=== PATIENT | female | born 1955 | race Caucasian/White ===

== ENCOUNTER → 2017-03-27 | Outpatient (CLI) | payer SELFPAY ==
--- NOTE | 2017-03-28 08:59 | RAD ---
EXAM DESCRIPTION: Hip,Left 2 Views (accession [id number]), Pelvis (accession [id number]) CLINICAL HISTORY: HIP PN COMPARISON: December 08, 2014 TECHNIQUE: AP/frog leg lateral AP view of the pelvis FINDINGS: Left total hip replacement and stable moderately advanced degenerative changes of the right hip are noted. The bony pelvic ring is intact without soft tissue masses or fracture. Left total hip replacement is noted. Satisfactory alignment is present. Compared to previous 2014 study, there is now a zone of lucency surrounding the stem of the femoral component that is not evident on previous February 2014 study. Loosening of the femoral component is suspected without marked erosion. IMPRESSION: 1. Essentially normal pelvis left total hip replacement and moderately advanced but unchanged degenerative changes right hip. 2. Satisfactory alignment of left total hip prosthesis with now a zone of lucency surrounding the tip of the femoral stem, not evident remotely 2014 study and is suspicious for loosening of the femoral component. Electronically signed by: Gm Veliz MD 03/28/2017 8:57 AM CDT
--- NOTE | 2017-03-28 08:59 | RAD ---
EXAM DESCRIPTION: Hip,Left 2 Views (accession [id number]), Pelvis (accession [id number]) CLINICAL HISTORY: HIP PN COMPARISON: December 08, 2014 TECHNIQUE: AP/frog leg lateral AP view of the pelvis FINDINGS: Left total hip replacement and stable moderately advanced degenerative changes of the right hip are noted. The bony pelvic ring is intact without soft tissue masses or fracture. Left total hip replacement is noted. Satisfactory alignment is present. Compared to previous 2014 study, there is now a zone of lucency surrounding the stem of the femoral component that is not evident on previous February 2014 study. Loosening of the femoral component is suspected without marked erosion. IMPRESSION: 1. Essentially normal pelvis left total hip replacement and moderately advanced but unchanged degenerative changes right hip. 2. Satisfactory alignment of left total hip prosthesis with now a zone of lucency surrounding the tip of the femoral stem, not evident remotely 2014 study and is suspicious for loosening of the femoral component. Electronically signed by: Gm Veliz MD 03/28/2017 8:57 AM CDT
== END | disposition home or self-care (01) ==
LOC: RAD 09:36
PROVIDERS: ATTEND Orthopaedic Surgery
DX: M25.552 Pain in left hip (principal)

== ENCOUNTER → 2017-09-25 | Outpatient (CLI) | payer BC ==
--- NOTE | 2017-09-25 10:33 | MRI ---
EXAM DESCRIPTION: Cervical Spine CLINICAL HISTORY: PAIN COMPARISON: None Available. TECHNIQUE: MRI of the cervical spine is performed according to our usual protocol. FINDINGS: Sagittal T2 images reveal previous fusion of C5-C6 and C7. There is decreased signal intensity within the other intervertebral discs. Normal T2 signal intensity within the cervical cord. Posterior discal abnormalities are most prominent at the upper thoracic levels. Sagittal T1 images show benign marrow signal characteristics. Normal T1 appearance of the cervical and upper thoracic spinal cord. Normal alignment of the vertebral bodies and facets. Sagittal STIR images are negative for high signal intensity marrow edema within the vertebral bodies or posterior elements of the cervical spine. However there is mild increased signal intensity around degenerated discs in the upper T-spine. No paraspinous fluid collection or cystic lesion. Axial images were obtained to evaluate the cervical disc levels. C2-3: Normal posterior disc margin with no spinal stenosis or neural foraminal narrowing. Facets appear normal. Normal appearance of the cord at this level. C3-4: Mild diffuse posterior disc/osteophyte complex is seen without significant spinal stenosis. Severe right and moderately severe neural foraminal narrowing is present. Facets are degenerated with prominent spurring on the left. Uncovertebral joint spurring contributes to significantly to neural foraminal narrowing especially on the right. Normal appearance of the cord at this level. C4-5: Diffuse posterior posterior disc/osteophyte complex is seen with right lateral accentuation severely narrowing the entry zone to the right neural foramen. No significant spinal stenosis. Moderately severe facet hypertrophic spurring is present bilaterally with prominent uncovertebral joint spurring. Neural foraminal narrowing is severe bilaterally. Normal appearance of the cord at this level. C5-6: At the fused C5-6 level, midline and right paracentral bony protuberance impinges upon the cervical spinal cord and measures 4 mm in AP dimension. There is contouring of the anterior aspect of the cord which appears flattened. CSF space is still preserved posterior to the cord. Moderate facet degenerative changes are present. Moderate right neural foraminal narrowing is seen with mild left neural foraminal narrowing. Uncovertebral joint spurring is more prominent on the right. C6-7: Midline rightward bony protuberance impinges upon the anterior aspect of the cervical cord and measures 3.3 mm in AP dimension. There is anterior cord contouring. CSF space posterior to the cord is preserved. The left neural foramen appears widely patent. Uncovertebral joint spurring narrows the right neural foramen moderately. C7-T1: Mild posterior leftward disc/osteophyte complex is seen without spinal stenosis or cord contouring. There is leftward accentuation with left-sided uncovertebral joint spurring severely narrowing the left neural foramen. Right neural foramen appears widely patent. Normal appearance of the cord at this level. Axial images through T1-2 show mild diffuse posterior annular bulge with bilateral lateral accentuation and moderate neural foraminal narrowing bilaterally. Sagittal images show moderate annular bulges at T2-3, T3-4 and T4-5 levels without high-grade spinal stenosis. Severe right T2-3 neural foraminal narrowing is seen with moderate left T2-3 and T3-4 neural foraminal narrowing. Normal T2 and STIR signal intensity of the upper thoracic spinal cord. IMPRESSION: Multilevel spondylosis with facet and uncovertebral joint spurring narrowing the neural foramina as described above. Posterior bony protuberances at the fused C5-6 and C6-7 levels with anterior cord contouring and neural foraminal narrowing as described Posterior annular bulges of moderate degree in the upper thoracic spine. See above. Electronically signed by: Bob Ayers MD 09/25/2017 10:33 AM CDT
--- NOTE | 2017-09-25 11:07 | MRI ---
EXAM DESCRIPTION: Lumbar Spine w/o Contrast CLINICAL HISTORY: PAIN COMPARISON: None Available. TECHNIQUE: MRI of the lumbar spine is performed according to our usual protocol with axial and sagittal multi sequence imaging. FINDINGS: Sagittal T2 images reveal decreased signal intensity consistent with desiccation of the intervertebral discs at all lower thoracic and lumbar levels. Posterior annular bulges are most prominent at L1-2 through L3-4 levels. No prevertebral mass or aneurysm. Lower cord and conus appear normal. Tip of the conus is behind T12-L1. Spinal stenosis appears severe at the L3-4 level. There is 5 mm degenerative retrolisthesis of L1 on L2 and L2 on L3 with 5 mm anterolisthesis of L4 on L5. Coronal localization images show degenerative dextroscoliotic curvature of the lower thoracic and lumbar spine. Sagittal T1 images reveal benign marrow signal characteristics. Endplate changes are prominent around L5-S1 and L2-3. Wedging of L1 and T12 appears chronic with approximately 10-20% loss of height anteriorly. Few Schmorl's nodes are present. Normal T1 signal intensity and appearance of the lower cord and conus. Sagittal STIR images show reactive edematous increased signal intensity around degenerated L3-4 disc and L2-3 disc. Similar mildly increased signal intensity within the pedicles at these levels likely represents stress reaction. Small Tarlov cysts are seen behind S2 and S3. No paraspinous fluid collection or cystic lesion. Axial T1 and T2-weighted images were obtained to evaluate the disc levels. T12-L1: Mild diffuse posterior annular bulge without focal herniation. No significant spinal stenosis or right neural foraminal narrowing. Moderate left neural foraminal narrowing is present. Advanced hypertrophic spurring of the left facet joint is seen with milder degenerative changes on the right. Tip of the conus and upper cauda equina appear normal at this level. L1:2: Diffuse posterior annular bulge is seen with left lateral accentuation. No significant spinal stenosis. Severe left neural foraminal narrowing is present. Mild to moderate neural foraminal narrowing is present on the right. Facets appear hypertrophic with ligamentum flavum thickening. Severe left more than right subarticular recess narrowing is noted with compromise of the upper left lateral recess and displacement of descending L2 nerve roots medially. L2-3: Moderate to severe diffuse posterior annular bulge is seen with mild narrowing of the AP diameter the spinal canal to approximately 1.0 cm (axial image 17, series 501). Facet hypertrophy is seen with bilateral ligamentum flavum thickening. Severe narrowing of subarticular recesses is noted bilaterally with impingement upon the descending left L3 nerve root. Sagittal images show severe left neural foraminal narrowing with moderate narrowing on the right. L3-4: Severe diffuse posterior annular bulge is seen. Marked ligament flavum thickening and facet hypertrophy is noted. Spinal canal is narrowed to 7 mm in AP dimension and approximately 9 mm in mediolateral width. There is obliteration of subarticular recesses and bilateral lateral recess compromise. Sagittal images show moderate right and moderately severe left neural foraminal narrowing. L4-5: Grade 1 anterolisthesis of L4 on L5 is seen measuring 5 mm. Partial uncovering of the upper disc margin is noted with diffuse annular bulge narrowing the spinal canal to approximately 1.3 cm in AP dimension. Marked facet and ligamentum flavum hypertrophy is seen narrowing the mediolateral width of the spinal canal to 7 mm. Marked facet spurring is present. There is narrowing of subarticular recesses and upper lateral recesses of moderate degree bilaterally. Sagittal images show mild neural foraminal narrowing bilaterally. L5-S1: Moderate diffuse posterior annular bulge is seen without significant spinal stenosis. There is narrowing of subarticular recesses right more than left and upper left lateral recess compromise. Sagittal images show severe bilateral neural foraminal narrowing. Moderate facet and ligamentum flavum hypertrophy is present. Upper sacrum appears intact. Degenerative changes are noted at the SI joints with prominent spurring on the right. There is fatty atrophy of the paraspinous musculature and volumetric atrophy of the psoas muscles. No retroperitoneal mass, adenopathy or aortic aneurysm. Right renal cyst is partially visualized measuring approximately 4 cm in diameter. Prominent thickened appearance of left adrenal gland is incidentally noted. IMPRESSION: Multilevel chronic annular bulges and advanced facet degenerative changes with subarticular recess and neural foraminal compromise as described. Spinal stenosis at L3-4 with AP diameter of the spinal canal measuring 7 mm. Electronically signed by: Bob Ayers MD 09/25/2017 11:06 AM CDT
== END ==
LOC: MRI 07:57
PROVIDERS: ATTEND Family Medicine
DX: M51.26 Other intervertebral disc displacement, lumbar region (principal); M48.061 Spinal stenosis, lumbar region without neurogenic claudication; M54.12 Radiculopathy, cervical region

== ENCOUNTER 2018-05-26 13:09 | Emergency (ER) | payer BC ==
[~2018-05-26 13:09] MED LIST: LIDOCAINE 1% 10 ML VIAL INJ ONE; MIDAZOLAM INJ 2 MG/2 ML VIAL IV ONE; PROPOFOL 200 MG/20 ML VIAL IV ONE; fentaNYL CITRATE INJ 50 MCG/ML AMP IV ONE
--- NOTE | 2018-05-26 13:41 | RAD ---
EXAM DESCRIPTION: Hip,Left 2 Views CLINICAL HISTORY: 62 years Female, dislocation COMPARISON: March 27, 2017 FINDINGS: Two views of the left hip show superior dislocation of the patient's bipolar left hip prosthesis. No fracture is identified. The soft tissues are unremarkable. IMPRESSION: Superior dislocation of the patient's left hip prosthesis. Electronically signed by: Markus Peñaloza MD 05/26/2018 1:40 PM [facility]
--- NOTE | 2018-05-26 14:02 | ED.PDOC ---
History of Present Illness - General Chief Complaint: Lower Extremity Injury Stated Complaint: L hip dislocation Time Seen by Provider: 05/26/18 13:13 Source: patient Exam Limitations: no limitations - History of Present Illness Initial Comments: PT TRANSFERRED FROM OUTLYING FACILITY FOR L HIP DISLOCATION THAT WAS UNABLE TO BE REDUCED. PT STATES THAT HIP DISLOCATED WHILE ATTEMPTING TO PUT ON HER BOOT. PT REPORTS HER HIP HAS DISLOCATED [address] TIM[address] PA[address] LYNN AT BEDSIDE TO EVALUATE PT SHORTLY AFTER ARRIVAL. Occurred: this morning Pain - Lower Extremity: severe: Left Thigh/Hip Method of Injury: other - PUTTING ON HER BOOT Improving Factors: immobilization Worsening Factors: movement Allergies/Adverse Reactions: Allergies Clarithromycin [From Biaxin] Allergy (Intermediate, Verified 01/03/15 11:54) Rash Protective Adhesive Powder Allergy (Intermediate, Verified 01/03/15 11:28) Rash Home Medications: Ambulatory Orders ALPRAZolam [Xanax] 0.25 mg PO TID PRN 02/14/14 Carisoprodol [Soma] 350 mg PO BID PRN 02/14/14 Estazolam [Prosom] 2 mg PO PRN PRN 02/14/14 HYDROcodone 7.5MG/APAP 325MG [[place] 7.5/325] 7.5 - 15 mg PO Q4-6H PRN 02/14/14 Losartan Potassium [Cozaar] 50 mg PO BID 02/14/14 Nifedipine [Procardia Xl] 90 mg PO DAILY 02/14/14 Ondansetron [Zofran Odt] 8 mg PO Q4-6H PRN 01/03/15 Vortioxetine HBr [Trintellix] 10 mg PO DAILY 01/03/15 Rivaroxaban [Xarelto] 10 mg PO QD #11 tab 01/05/15 Review of Systems - Review of Systems Constitutional: Denies: chills, fever EENTM: Denies: nose congestion, throat pain Respiratory: Denies: cough, short of breath Genitourinary: Denies: dysuria, frequency Musculoskeletal: States: joint pain. Denies: joint swelling Neurological: Denies: headache, numbness Past Medical History (General) - Patient Medical History Hx Seizures: No Hx Stroke: No Hx Asthma: No Hx of COPD: No Hx Cardiac Disorders: Yes Hx Congestive Heart Failure: No Hx Pacemaker: No Hx Hypertension: Yes Hx Diabetes: No Hx MRSA: No - Social History Hx Alcohol Use: No Hx Substance Use: No Hx Physical Abuse: No Hx Emotional Abuse: No - Female History Patient : No Family Medical History - Family History Mother Living Status: Age at (years of age): 77 Cause of : MRSA-sepsis Hx Family Cancer: Yes - breast Age of Onset (years of age): 48 Father Living Status: Age at (years of age): 84 Cause of : [place] Hx Family Hypertension: Yes Hx Cardiac Disease: Yes Physical Exam - Physical Exam General Appearance: Alert, No apparent distress, Well Developed, Well Groomed, Well Hydrated Cardiovascular/Respiratory: regular rate, rhythm, no M/R/G Thigh/Hip: deformity, limited ROM Leg: other - LLE SHORTENED AND EXTERNALLY ROTATED. Knee: normal inspection, non-tender, no evidence of injury Ankle: normal inspection, non-tender, no evidence of injury Foot: normal inspection, non-tender, no evidence of injury Neuro/Tendon: normal sensation, normal motor functions Mental Status: alert, oriented x 3 Skin: normal color, warm/dry Progress - Progress Progress: 05/26/18 13:50 DR. LYNN ABLE TO SUCESSFULLY REDUCE HIP WITH ANESTHESIA AT BEDSIDE. IV PROPOFOL ADMINISTERED. 05/26/18 14:08 PT NOW AWAKE AND ALERT AND ABLE TO MOVE HIP WITHOUT PAIN OR DIFFICULTY. PT INSTRUCTED NOT TO BEND AT THE HIP. - EKG/XRAY/CT XRAY: hip - LEFT HIP DISLOCATION, PER RAD - Additional EKG/XRAY/Consults XRAY #2: hip - INTERVAL SUCESSFUL REDUCTION OF L HIP DISLOCATION Departure - Departure Clinical Impression: Hip dislocation, left Time of Disposition: 14:09 Disposition: Discharge to Home or Self Care Condition: Good Departure Forms: ED Discharge - Pt. Copy, Patient Portal Self Enrollment Instructions: Hip Dislocation (DC), Moderate Sedation in Adults (DC) Diet: resume usual diet Activity: other - NO BENDING AT THE HIP Referrals: Jose Patrick MD [Primary Care Provider] - 1-2 Weeks Home Medications: Ambulatory Orders ALPRAZolam [Xanax] 0.25 mg PO TID PRN 02/14/14 Carisoprodol [Soma] 350 mg PO BID PRN 02/14/14 Estazolam [Prosom] 2 mg PO PRN PRN 02/14/14 HYDROcodone 7.5MG/APAP 325MG [[place] 7.5/325] 7.5 - 15 mg PO Q4-6H PRN 02/14/14 Losartan Potassium [Cozaar] 50 mg PO BID 02/14/14 Nifedipine [Procardia Xl] 90 mg PO DAILY 02/14/14 Ondansetron [Zofran Odt] 8 mg PO Q4-6H PRN 01/03/15 Vortioxetine HBr [Trintellix] 10 mg PO DAILY 01/03/15 Rivaroxaban [Xarelto] 10 mg PO QD #11 tab 01/05/15
--- NOTE | 2018-05-26 14:07 | RAD ---
EXAM DESCRIPTION: Hip,Left 2 Views CLINICAL HISTORY: 1 view post reduction COMPARISON: 26 May 2018 time 13;24 TECHNIQUE: AP left hip FINDINGS: A left total hip arthroplasty is observed in place. The previously observed dislocation has been reduced. No fracturing is detected. IMPRESSION: Interval reduction of a prosthetic hip dislocation is observed. Electronically signed by: Shakir Fletcher MD 05/26/2018 2:05 PM [facility]
--- NOTE | 2018-05-26 14:28 | RAD ---
EXAM DESCRIPTION: Pelvis CLINICAL HISTORY: relocation COMPARISON: May 26, 2018 IMPRESSION: Single AP portable view of the pelvis was interval reduction of the previously seen dislocation of the right hip prosthesis. No fracture or dislocation is seen on this exam. Screw fixation of the acetabular component of the right noncemented total hip arthroplasty seen. No fracture is seen. Mild heterotopic ossification laterally is noted. Noncemented right bipolar total hip arthroplasty with single screw fixation of the acetabular component is noted. Osseous structures are diffusely osteopenic. Electronically signed by: Elias Carver MD 05/26/2018 2:27 PM [facility]
[2018-05-26 17:28] VITALS: BP 122/75; TEMP 97.2; O2SAT 96
--- NOTE | 2018-06-02 08:40 | CONS ---
DATE OF CONSULTATION: 05/26/18 CHIEF COMPLAINT: Left hip pain. HISTORY OF PRESENT ILLNESS: Ms. Loera is a 62-year-old female with a history of total hip replacement. She had an uncomplicated course. Unfortunately, she has had a history of a couple of dislocations after she was bending over at 90 degrees at the waist. Because of her doing this again, she did sustain a dislocation. She was seen initially out in [place] and was transferred here. She has already had sedation, so some of the history is gained from her previous chart. PAST SURGICAL HISTORY: 1. Bilateral hip replacement. 2. Lumbar fusion. 3. Cervical fusion. MEDICATIONS: 1. Losartan. 2. [place]. 3. Procardia. 4. Restoril. ALLERGIES: NO KNOWN DRUG ALLERGIES. FAMILY HISTORY: None pertinent to today's complaint. SOCIAL HISTORY: The patient does smoke approximately one pack a day. She denies alcohol and drug use. REVIEW OF SYSTEMS: Negative except as indicated in the History of Present Illness. PHYSICAL EXAMINATION: MENTAL STATUS: The patient is awake, alert, and is able to give a good history and participate in the physical. The patient is oriented to person, place and time. SKIN: Normal tone and turgor. MUSCULOSKELETAL: She holds the leg flexed and slightly internally rotated. She does have pain with attempted range of motion. Sensation is intact in the extremity and it is warm and well perfused. The contralateral side today appears to be within normal limits. IMAGING: X-rays show a dislocation that appears to be posteriorly dislocated. ASSESSMENT: 1. Hip dislocation. PLAN: The plan at this point is for closed reduction. Our anesthesia provider was called in to assist with this. After given her adequate sedation, appropriate reduction maneuver was performed. Post reduction x-rays show concentrically reduced hip. Gabbie has braces she has not been using. We have encouraged her to use that brace and she will followup with us in about 2 weeks. She was given appropriate instructions on restrictions that she is supposed to be following status post total hip arthroplasty. We will see her back again and she has been instructed to return immediately should any change in her condition occur. #[id number] MTDD
== END 2018-05-26 14:42 | disposition home or self-care (01) ==
LOC: ER 13:09
DX: M24.452 Recurrent dislocation, left hip (principal); I10 Essential (primary) hypertension; I51.9 Heart disease, unspecified; Z79.899 Other long term (current) drug therapy; Z88.8 Allergy status to other drugs, medicaments and biological substances
CPT/HCPCS: 27256; 72170; 73502; 99152; J2250; J3490

== ENCOUNTER 2019-01-26 13:22 | Emergency (ER) | payer BC ==
[2019-01-26] MEDS ORDERED: MIDAZOLAM INJ 5 MG/5 ML VIAL ONE (14:36)
[2019-01-26] MEDS ORDERED: fentaNYL CITRATE INJ 50 MCG/ML AMP ONE (14:36)
--- NOTE | 2019-01-26 14:50 | ED.PDOC ---
History of Present Illness - General Chief Complaint: Lower Extremity Injury Stated Complaint: LEFT HIP DISLOCATION Time Seen by Provider: 01/26/19 14:47 Source: patient, RN/MD Exam Limitations: no limitations - History of Present Illness Initial Comments: PT TRANSFERRED FROM [place] [facility] WITH COMPLAINT OF RECURRENT LEFT HIP DISLOCATION. DR. LYNN AWARE OF TRANSFER AND PLANS TO COME TO THE ED TO REDUCE HIP. PT STATES THIS IS APPROXIMATELY THE 17TH TIME THIS HIP HAS BEEN DISLOCATED. PT REPORTS DISLOCATION OCCURRED WHILE ATTEMPTING TO PUT HER SOCK ON TODAY. Occurred: this morning Pain - Lower Extremity: severe: Left Thigh/Hip Method of Injury: other - PUTTING SOCK ON Improving Factors: immobilization Worsening Factors: movement Allergies/Adverse Reactions: Allergies Clarithromycin [From Biaxin] Allergy (Intermediate, Verified 01/03/15 11:54) Rash Protective Adhesive Powder Allergy (Intermediate, Verified 01/03/15 11:28) Rash Home Medications: Ambulatory Orders ALPRAZolam [Xanax] 0.25 mg PO TID PRN 02/14/14 Carisoprodol [Soma] 350 mg PO BID PRN 02/14/14 Estazolam [Prosom] 2 mg PO PRN PRN 02/14/14 HYDROcodone 7.5MG/APAP 325MG [[place] 7.5/325] 7.5 - 15 mg PO Q4-6H PRN 02/14/14 Losartan Potassium [Cozaar] 50 mg PO BID 02/14/14 Nifedipine [Procardia Xl] 90 mg PO DAILY 02/14/14 Ondansetron [Zofran Odt] 8 mg PO Q4-6H PRN 01/03/15 Vortioxetine HBr [Trintellix] 10 mg PO DAILY 01/03/15 Rivaroxaban [Xarelto] 10 mg PO QD #11 tab 01/05/15 Review of Systems - Review of Systems Constitutional: Denies: chills, fever Respiratory: Denies: orthopnea, short of breath Cardiology: Denies: edema, palpitations, syncope Musculoskeletal: States: joint pain. Denies: joint swelling Skin: Denies: dryness, lesions Past Medical History (General) - Patient Medical History Hx Seizures: No Hx Stroke: No Hx Asthma: No Hx of COPD: No Hx Cardiac Disorders: Yes Hx Congestive Heart Failure: No Hx Pacemaker: No Hx Hypertension: Yes Hx Diabetes: No Hx MRSA: No - Vaccination History Hx Influenza Vaccination: No Hx Pneumococcal Vaccination: No - Social History Hx Tobacco Use: Yes Hx Alcohol Use: No Hx Substance Use: No Hx Physical Abuse: No Hx Emotional Abuse: No - Female History Patient : No Family Medical History - Family History Mother Living Status: Age at (years of age): 77 Cause of : MRSA-sepsis Hx Family Cancer: Yes - breast Age of Onset (years of age): 48 Father Living Status: Age at (years of age): 84 Cause of : [place] Hx Family Hypertension: Yes Hx Cardiac Disease: Yes Physical Exam - Physical Exam General Appearance: Alert, No apparent distress, Well Developed, Well Groomed, Well Hydrated Neck: normal inspection Cardiovascular/Respiratory: regular rate, rhythm, no M/R/G, normal breath sounds, no respiratory distress Thigh/Hip: limited ROM, soft tissue tenderness Leg: non-tender, no evidence of injury Knee: non-tender, no evidence of injury Ankle: non-tender, no evidence of injury Foot: non-tender, other - SHORTENED AND EXTERNALLY ROTATED, GOOD DP AND PT PULSE Neuro/Tendon: normal sensation, normal motor functions, normal tendon functions, responds to pain Mental Status: alert, oriented x 3 Skin: normal color, warm/dry Progress - Progress Progress: 01/26/19 14:54 DR. LYNN AT BEDSIDE TO PERFORM JOINT REDUCTION. PT GIVEN PROPOFOL FOR SEDATION BY ANESTHESIA. PT TOLERATED PROCEDURE WELL. 01/26/19 15:19 PT RESTING COMFORTABLY AFTER HIP REDUCTION. AWAKE AND ALERT WITH FROM OF L HIP. Departure - Departure Clinical Impression: Hip dislocation, left Time of Disposition: 15:20 Disposition: Discharge to Home or Self Care Condition: Good Departure Forms: ED Discharge - Pt. Copy, Patient Portal Self Enrollment Instructions: Hip Dislocation (DC), Moderate Sedation in Adults (DC) Referrals: Jose Patrick MD [Primary Care Provider] - 1-5 Days Home Medications: Ambulatory Orders ALPRAZolam [Xanax] 0.25 mg PO TID PRN 02/14/14 Carisoprodol [Soma] 350 mg PO BID PRN 02/14/14 Estazolam [Prosom] 2 mg PO PRN PRN 02/14/14 HYDROcodone 7.5MG/APAP 325MG [[place] 7.5/325] 7.5 - 15 mg PO Q4-6H PRN 02/14/14 Losartan Potassium [Cozaar] 50 mg PO BID 02/14/14 Nifedipine [Procardia Xl] 90 mg PO DAILY 02/14/14 Ondansetron [Zofran Odt] 8 mg PO Q4-6H PRN 01/03/15 Vortioxetine HBr [Trintellix] 10 mg PO DAILY 01/03/15 Rivaroxaban [Xarelto] 10 mg PO QD #11 tab 01/05/15
--- NOTE | 2019-01-26 15:07 | RAD ---
EXAM DESCRIPTION: Left hip, 2 views CLINICAL HISTORY: Hip pain. Dislocation FINDINGS/ IMPRESSION: Prereduction and postreduction radiographs of the left hip Left total hip arthroplasty superior dislocation of the femoral component out of the acetabular component on the initial radiograph and subsequent relocation on follow-up radiograph. Spurring and mild heterotopic bone along the greater trochanter. No acute periprosthetic fracture or osteolysis Electronically signed by: Gm Armendariz MD 01/26/2019 3:05 PM CDT
[2019-01-26 15:50] VITALS: BP 119/88; TEMP 97.8; O2SAT 100
[2019-01-26] MEDS ORDERED: LIDOCAINE 1% 10 ML VIAL INJ ONE (16:13)
[2019-01-26] MEDS ORDERED: GLYCOPYRROLATE 0.2 MG/ML VIAL ONE (16:13)
[2019-01-26] MEDS ORDERED: PROPOFOL 200 MG/20 ML VIAL IV ONE (16:13)
[2019-01-26] MEDS ORDERED: KETAMINE HCL 100 MG/ML VIAL ONE (16:13)
--- NOTE | 2019-01-27 08:44 | CONS ---
DATE OF CONSULTATION: 01/26/19 CHIEF COMPLAINT: Left hip pain. HISTORY OF PRESENT ILLNESS: Gabbie is a 63-year-old female with a history of total hip replacement done about 5 years ago. She had some sort of accident about 3 years after that and started dislocating the left hip. She has had multiple dislocations and we talked about her options which would include surgical revision and activity modification, however, she has refused surgical intervention at this time. This incident saw her leaning over to put her socks on, which she has been told in the past was a risk factor. She had the acute onset of pain and was seen in [place]. [place] called and the patient was transferred to [place] for reduction. Today, she complains of pain in the hip without radiation. There are no neurologic symptoms. She had no other injury. The pain is sharp, localized and occurs with any movement. PAST SURGICAL HISTORY: 1. Bilateral total hip arthroplasty. MEDICATIONS: 1. Alprazolam. 2. Carisoprodol. 3. Estazolam. 4. Hydrocodone. 5. Losartan. 6. Nifedipine. 7. Ondansetron. 8. Vortioxetine. 9. Rivaroxaban. ALLERGIES: CLARITHROMYCIN, ADHESIVE POWDER. SOCIAL HISTORY: The patient does smoke, does not use alcohol or illicit drugs per her report. FAMILY HISTORY: None pertinent to today's complaint. REVIEW OF SYSTEMS: Negative except as indicated in the History of Present Illness. PHYSICAL EXAMINATION: MENTAL STATUS: The patient is awake, alert, and is able to give a good history and participate in the physical. The patient is oriented to person, place and time. SKIN: Normal tone and turgor. HEENT: Normocephalic, atraumatic. Pupils equal, round and reactive. Mucosal membranes are moist. NECK: Normal range of motion. No thyromegaly, no lymphadenopathy. CHEST: Normal respiratory excursion. CARDIAC: Regular rate and rhythm. No murmurs, rubs or gallops. MUSCULOSKELETAL: The bilateral upper extremities show full active range of motion without pain. She has intact sensation in the extremities and they are warm and well perfused. She has no deformity. Strength is 5/5. The right lower extremity shows no deformity. She has no malalignment. Sensation is intact. It is warm and well perfused. Movement causes pain in the contralateral hip, so is only limited by that. The left lower extremity shows shortening with flexion and internal rotation of the hip. Any attempted range of motion is painful. She has intact sensation and it is warm and well perfused. There is no other deformity except as mentioned above. IMAGING: X-rays show a superior dislocation of the hip. ASSESSMENT: 1. Hip dislocation. PLAN: The plan at this point is for closed reduction with sedation. PROCEDURE: Hi Zabala CRNA, administered propofol and a reduction was performed. Post reduction x-rays show concentric reduction. As far as future treatments, Gabbie has been counseled as to her options and what she should avoid. Hopefully, she will be able to maintain restrictions. She also does of course have the option for further surgical intervention should she choose. #[id number] [facility]
== END 2019-01-26 15:45 | disposition home or self-care (01) ==
LOC: ER 13:22
DX: M24.452 Recurrent dislocation, left hip (principal); I51.9 Heart disease, unspecified; I10 Essential (primary) hypertension; Z87.891 Personal history of nicotine dependence; Z79.899 Other long term (current) drug therapy; Z79.01 Long term (current) use of anticoagulants; Z88.1 Allergy status to other antibiotic agents; Z88.8 Allergy status to other drugs, medicaments and biological substances
CPT/HCPCS: 73502; 94770; J2250; J3010; J3490

== ENCOUNTER → 2019-01-27 | Outpatient (CLI) | payer BC | LOC: GMAH 10:49 | PROVIDERS: ATTEND Family Medicine | DX: E78.2 Mixed hyperlipidemia (principal) ==

== ENCOUNTER 2019-02-24 22:56 | Emergency (ER) | payer BC ==
[2019-02-24] MEDS ORDERED: diazePAM INJ 10 MG/2 ML SYG IV ONE (23:10)
[2019-02-24] MEDS ORDERED: ETOMIDATE INJECTION 2 MG/ML 20ML VIAL IV ONE (23:56)
--- NOTE | 2019-02-25 00:21 | RAD ---
EXAM DESCRIPTION: Hip,Left 2 Views CLINICAL HISTORY: 63 years Female suspected repeat dislocation COMPARISON: None TECHNIQUE: Two images of the left hip were obtained. FINDINGS: Left total hip prosthesis. Superior dislocation femoral head components of prosthesis with relationship to acetabular component. No definite fracture seen. Right total hip prosthesis also present. IMPRESSION: Left total hip prosthesis with superior dislocation seen. No definite fracture seen. Electronically signed by: Shireen Mosher MD 02/25/2019 12:19 AM CDT
--- NOTE | 2019-02-25 00:22 | RAD ---
EXAM DESCRIPTION: Hip,Left 2 Views CLINICAL HISTORY: 63 years Female post reduction COMPARISON: Prior images obtained on the same day. TECHNIQUE: Single AP view of the left hip was obtained. FINDINGS: Left total hip prosthesis again noted. There is now satisfactory articulation left femoral head components with acetabular component. No fracture seen. Well-circumscribed bone densities greater trochanteric region likely related to prior instrumentation. Distal femoral components intact. IMPRESSION: Satisfactory postreduction study. Electronically signed by: Shireen Mosher MD 02/25/2019 12:21 AM CDT
--- NOTE | 2019-02-25 00:27 | ED.PDOC ---
History of Present Illness - General Chief Complaint: Lower Extremity Injury Stated Complaint: left hip dislocation Time Seen by Provider: 02/24/19 23:10 Source: patient Exam Limitations: no limitations - History of Present Illness Initial Comments: the patient is a 63-year-old female presenting to the emergency room secondary to recurrent left hip dislocation. The patient has had a hip replacement in the past and reports that since that time she has had probably 16 or 17 dislocation episodes requiring reduction. This time occurred while she was bending down in her yard. No real trauma. Sensations preserved. Pulses are preserved. She arrived with EMS after having received 100 g of fentanyl.last oral intake was approximately 3 hours prior. Timing/Duration: 1 hour Severity: moderate Improving Factors: immobilization Worsening Factors: movement Associated Symptoms: denies symptoms Allergies/Adverse Reactions: Allergies Clarithromycin [From Biaxin] Allergy (Intermediate, Verified 02/24/19 23:14) Rash Protective Adhesive Powder Allergy (Intermediate, Verified 02/24/19 23:14) Rash Home Medications: Ambulatory Orders ALPRAZolam [Xanax] 0.25 mg PO TID PRN 02/14/14 Carisoprodol [Soma] 350 mg PO BID PRN 02/14/14 Estazolam [Prosom] 2 mg PO PRN PRN 02/14/14 HYDROcodone 7.5MG/APAP 325MG [[place] 7.5/325] 7.5 - 15 mg PO Q4-6H PRN 02/14/14 Losartan Potassium [Cozaar] 50 mg PO BID 02/14/14 Nifedipine [Procardia Xl] 90 mg PO DAILY 02/14/14 Ondansetron [Zofran Odt] 8 mg PO Q4-6H PRN 01/03/15 Vortioxetine HBr [Trintellix] 10 mg PO DAILY 01/03/15 Rivaroxaban [Xarelto] 10 mg PO QD #11 tab 01/05/15 Review of Systems - Review of Systems Constitutional: States: no symptoms reported EENTM: States: no symptoms reported Respiratory: States: no symptoms reported Cardiology: States: no symptoms reported Gastrointestinal/Abdominal: States: no symptoms reported Genitourinary: States: no symptoms reported Musculoskeletal: States: see HPI Skin: States: no symptoms reported Neurological: States: no symptoms reported Endocrine: States: no symptoms reported All other Systems: No Change from Baseline Past Medical History (General) - Patient Medical History Hx Seizures: No Hx Stroke: No Hx Asthma: No Hx of COPD: No Hx Cardiac Disorders: Yes Hx Congestive Heart Failure: No Hx Pacemaker: No Hx Hypertension: Yes Hx Diabetes: No Hx Cancer: No Hx Hepatitis C: No Hx MRSA: No - Vaccination History Hx Tetanus, Diphtheria Vaccination: Yes Hx Influenza Vaccination: Yes Hx Pneumococcal Vaccination: No Immunizations Up to Date: Yes - Social History Hx Tobacco Use: Yes Hx Alcohol Use: No Hx Substance Use: No Hx Substance Use Treatment: No Hx Depression: Yes Hx Physical Abuse: No Hx Emotional Abuse: No - Female History Patient is a Female of Child Bearing Age (10 -59 yrs old): No Patient : No Family Medical History - Family History Mother Living Status: Age at (years of age): 77 Cause of : MRSA-sepsis Hx Family Cancer: Yes - breast Age of Onset (years of age): 48 Father Living Status: Age at (years of age): 84 Cause of : IN Hx Family Hypertension: Yes Hx Cardiac Disease: Yes Physical Exam - Physical Exam General Appearance: Alert, Comfortable, No apparent distress Eye Exam: bilateral normal Ears, Nose, Throat: hearing grossly normal, normal ENT inspection Neck: full range of motion, supple Respiratory: lungs clear, normal breath sounds, no respiratory distress, no accessory muscle use Cardiovascular/Chest: normal peripheral pulses, regular rate, rhythm, no edema Peripheral Pulses: radial,right: 2+, radial,left: 2+, dorsalis pedis,right: 2+, dorsalis pedis,left: 2+, posterior tibialis,right: 2+, posterior tibialis,left: 2+ Gastrointestinal/Abdominal: non tender, soft Rectal Exam: deferred Extremity: no pedal edema, no calf tenderness, normal capillary refill, other - there is obvious shortening and external rotation of the left leg. Pulses are palpable. No evidence of traumaaside from the deformity at the hip. 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 This is a recurrent problem for her. Risk and benefits of reduction of the reduction were explained and the patient agrees to proceed. pre-and postreduction films were taken. After proximally 4 hours after her last oral intake, with respiratory present, vital signs were monitored and the patient underwent moderate sedation with a total o f 16 mg of etomidate. She had received 100 g of fentanyl and 5 mg of Valium prior. Reduction was achieved with only moderate difficulty. Patient tolerated the procedure well. She is neurovascularly preserved. She has recovered well from moderate sedation. The patient needs to move carefully prevent further dislocations. She will likely be sore for the next week. ER warnings were given. Keep routine follow-up with primary care doctor. - EKG/XRAY/CT CT Ordered: No CT Interpretation Call Back: No Departure - Departure Clinical Impression: Recurrent dislocation, left hip Disposition: Discharge to Home or Self Care Condition: Fair Departure Forms: ED Discharge - Pt. Copy, Patient Portal Self Enrollment Instructions: Hip Dislocation (DC) Diet: regular diet Activity: increase activity as tolerated Referrals: Carlos Medina MD [Primary Care Provider] - 1-2 Weeks Home Medications: Ambulatory Orders ALPRAZolam [Xanax] 0.25 mg PO TID PRN 02/14/14 Carisoprodol [Soma] 350 mg PO BID PRN 02/14/14 Estazolam [Prosom] 2 mg PO PRN PRN 02/14/14 HYDROcodone 7.5MG/APAP 325MG [[place] 7.5/325] 7.5 - 15 mg PO Q4-6H PRN 02/14/14 Losartan Potassium [Cozaar] 50 mg PO BID 02/14/14 Nifedipine [Procardia Xl] 90 mg PO DAILY 02/14/14 Ondansetron [Zofran Odt] 8 mg PO Q4-6H PRN 01/03/15 Vortioxetine HBr [Trintellix] 10 mg PO DAILY 01/03/15 Rivaroxaban [Xarelto] 10 mg PO QD #11 tab 01/05/15 Additional Instructions: the patient presented with left hip recurrent dislocation. Under moderate sedation the hip was reduced. The patient tolerated the procedure well. Keep routine follow-up with primary care doctor. Motivate carefully to prevent further dislocations.
[2019-02-25] MEDS ORDERED: ETOMIDATE INJECTION 2 MG/ML 20ML VIAL IV ONE (00:29)
[2019-02-25 01:05] VITALS: BP 172/88; TEMP 98.2; O2SAT 97
== END 2019-02-25 01:06 | disposition home or self-care (01) ==
LOC: ER 22:56
DX: T84.021A Dislocation of internal left hip prosthesis, initial encounter (principal); I51.9 Heart disease, unspecified; I10 Essential (primary) hypertension; F32.9 Major depressive disorder, single episode, unspecified; Z79.899 Other long term (current) drug therapy; Z87.891 Personal history of nicotine dependence
CPT/HCPCS: 73502; J3360

== ENCOUNTER → 2019-05-21 | Outpatient (CLI) | payer BC ==
--- NOTE | 2019-05-25 15:42 | MAM ---
EXAM DESCRIPTION: 3D Screening BILATERAL : Digital Mammography. CLINICAL HISTORY: 63 years Female SCREENING . No complaints. No personal history of breast cancer. Mother with breast cancer unknown age. Menarche age 13. Childbirth. Postmenopausal 20+ years. HRT 5 or more years ago. Lifetime risk of developing breast cancer (Tyrer-Cuzick model)(%): 12.8. COMPARISON: 2-D digital screening bilateral mammography 08/12/2011. TECHNIQUE: Bilateral CC and MLO projection full-field images, digital tomosynthesis mammographic technique. Bilateral digital 2-D full-field MLO images. CAD not available for tomosynthesis or 2-D images. FINDINGS: The breast parenchymal density pattern is: Scattered areas of fibroglandular density. No skin thickening or nipple retraction. Bilateral solitary microcalcifications. Bilateral vascular calcifications. Nodular densities in the anterior lateral left breast are stable. No new focal, stellate mass or density, focal asymmetry , and no suspicious microcalcifications bilaterally. Stable mammograms compared to prior study. Taking into account, differences in mammographic technique. IMPRESSION: Benign exam. BIRAD CATEGORY: 2 BENIGN FINDINGS. RECOMMENDATIONS: FOLLOW UP: Routine digital bilateral mammographic screening, one year interval from May 2019. Written communication explaining the IMPRESSION and follow-up, will be mailed to the patient and referring health care provider. According to the [employer], yearly mammograms are recommended starting at age 40 and continuing as long as a woman is in good health. Any breast change noted on a breast self-exam should be reported promptly to the patient's healthcare provider. Breast MRI is recommended for women with an approximately 20-25% or greater lifetime risk of breast cancer, including women with a strong family history of breast or ovarian cancer and women who have been treated for Hodgkin's disease. A negative mammographic report should not delay tissue diagnosis in patients with significant clinical history or physical findings. Extremely dense breast tissue limits the sensitivity of digital mammography. Electronically signed by: Jeovany Guevara MD 05/25/2019 3:40 PM PAIN COORDINATOR
== END ==
LOC: MAMMO 14:00
PROVIDERS: ATTEND Family Medicine
DX: Z12.31 Encounter for screening mammogram for malignant neoplasm of breast (principal)

== ENCOUNTER 2019-11-25 17:49 | Emergency (ER) | payer BC ==
[2019-11-25] MEDS ORDERED: SODIUM CHLORIDE 0.9% 1000ML 1,000 ML IVS ONE (18:57)
--- NOTE | 2019-11-25 18:57 | RAD ---
EXAM DESCRIPTION: Chest x-ray,1 View CLINICAL HISTORY: confusion, recent diverticulitis COMPARISON: None FINDINGS: Cardiac silhouette is within normal limits. Aorta is tortuous. Dense nodular opacities within the lungs compatible with calcified pulmonary nodules. There is no focal parenchymal or pleural disease. There is no acute osseous process visualized. IMPRESSION: No evidence of acute cardiopulmonary disease. Electronically signed by: Mathew Aguilar MD 11/25/2019 6:55 PM CDT
[2019-11-25] MEDS ORDERED: ERTAPENEM 1 GM in SODIUM CHL 0.9% 50ML MIN-BAG+ 50 ML IVPB ONE (18:58)
[2019-11-25] MEDS ORDERED: IPRATROPIUM/ALBUTEROL 3 ML VIAL NEB ONE (19:01)
[2019-11-25] MEDS ORDERED: ERTAPENEM 1 GM VIAL ONE (19:12)
[2019-11-25] MEDS ORDERED: SODIUM CHL 0.9% 50ML MIN-BAG+ 50 ML IVPB ONE (19:12)
[2019-11-25] MEDS ORDERED: cefTRIAXone SODIUM 1 GM in SODIUM CHL 0.9% 50ML MIN-BAG+ 50 ML IVPB ONE (19:27)
--- NOTE | 2019-11-25 19:46 | CT ---
PROCEDURE: CT Head CLINICAL HISTORY: 64 years Female confusion TECHNIQUE: Contiguous axial CT images obtained through the brain without IV contrast. Coronal and sagittal reformats also provided. This CT exam was performed according to our departmental dose-optimization program, which includes one or more of the following dose reduction techniques: automated exposure control, adjustment of the mA and/or kV according to patient size, and/or use of iterative reconstruction technique. COMPARISON: No prior exams provided for comparison. FINDINGS: There is no intracranial hemorrhage, extra-axial collection, or acute transcortical infarction. Scattered foci of low attenuation within the periventricular and subcortical white matter are nonspecific but compatible with chronic microvascular disease. The ventricles are normal in size and contour without mass-effect or midline shift. Osseous structures are normal. Small mucosal polyps and secretions in the right ethmoid and bilateral sphenoid sinuses. The remainder of the visualized paranasal sinuses and left mastoid air cells are clear. There is minimal right mastoiditis. IMPRESSION: Minimal paranasal sinusitis and right mastoiditis. No other acute intracranial findings. Electronically signed by: Karina Washington MD 11/25/2019 7:44 PM CDT
--- NOTE | 2019-11-25 19:59 | CT ---
EXAM DESCRIPTION: Abdoment/Pelvis w/o Contrast CLINICAL HISTORY: 64 years Female recent diverticulitis c abscess and lap drainage COMPARISON: None. TECHNIQUE: Contiguous axial images obtained through the abdomen and pelvis without IV contrast. Reformatted images obtained. This exam was performed according to our department optimization program which includes automated exposure control, adjustment of the mA and/or kv according to patient size and/or use of iterative reconstruction technique. FINDINGS: There is patchy atelectasis versus infiltrate in the right lung base with small amount of atelectasis in the left lung base. Small volume of free intraperitoneal air. Wall thickening in the distal esophagus which may reflect esophagitis. Liver, spleen and pancreas appear intrinsically normal. Fat attenuation nodule in the left adrenal gland. No follow-up is recommended. The kidneys appear unremarkable. No hydronephrosis or definite ureteral calculi. The gallbladder is distended. No definite stones or wall thickening noted. No aneurysmal dilatation of the aorta. Study is limited without intravenous contrast. There is diverticulosis in the colon with significant wall thickening in the descending and the sigmoid colon. There appear to be multiloculated fluid collections adjacent to the sigmoid consistent with abscess. Collection also extends along the left pelvic sidewall in the retroperitoneal space. The largest collection in the pelvis measures 9 x 11.7 cm. Additional elliptical collection along the left pelvis measures 7.8 x 2.6 cm. Multiloculated collection extends along the retroperitoneum with a component along the anterior margin of the central aspect measuring 4.6 x 5.2 cm anechoic collection in between the psoas muscle and the descending colon measuring 3.9 x 3.6 cm. Additional collection in the central mesentery to the right of the midline measures 6.1 x 7.5 cm and extends vertically for 7.7 cm. Additional fluid collections may be present but these are difficult to differentiate from unenhanced loops of small bowel. There is diffuse stranding and edema in the mesentery. There is an additional gas and fluid collection which again is difficult to differentiate from loops of bowel but suspect that this is related to abscess collection located cephalad to the largest pelvic collection and extending along the anterior margin of the retroperitoneum and the aorta crossing the midline on the left. Bilateral hip prostheses. No free pelvic fluid. IMPRESSION: Free intraperitoneal gas consistent with recent laparoscopic drain placement. Tracks are seen along the anterior abdomen consistent with recent trocar placement Extensive inflammatory change and stranding throughout the abdomen and pelvis with numerous large loculated abscesses, the largest of which is in the pelvis adjacent to the sigmoid colon which communicates with a collection along the left pelvic sidewall and left retroperitoneum Additional collection in the central aspect of the mesentery on the right which extends to the level of the duodenum Serpiginous collection extending cephalad along the retroperitoneum and crossing the midline into the left mid abdomen. Suspect that this represents gas and fluid collection but a loop of unenhanced bowel is not excluded Marked wall thickening and inflammation in the descending and the sigmoid colon Additional changes as above Findings were discussed with Dr. Welch at 5:56 PM central time. Electronically signed by: Anika Corona MD 11/25/2019 7:58 PM CDT
--- NOTE | 2019-11-25 20:08 | ED.PDOC ---
History of Present Illness - General Chief Complaint: General Stated Complaint: confusion Time Seen by Provider: 11/25/19 17:57 Source: patient, family Exam Limitations: other - Mild confusion - History of Present Illness Initial Comments: The patient is a 64-year-old female presented emergency room secondary to confusion over the last 24 to 36 hours. She was recently at [facility] for an extended stay secondary to abdominal and pelvic abscess related to diverticulitis. She had a PICC line and received daily Invanz however she accidentally pulled it out last night. She apparently did get a dose yesterday she thinks. She knows where she is and what is going on currently. Blood pressures are borderline low but the patient does take several pain medications along with several blood pressure medications. She reports nausea and mild anorexia. Abdomen is uncomfortable to palpation significantly and she does have some guarding. External operative sites appear to be in good condition. She is uncertain if she has had any fevers. Records obtained from [facility] her last month with count was 21,000 and she had normal renal function approximately 2 days prior to discharge. She was apparently received another 6 weeks of IV Invanz under the direction of Dr. Mcclain. Timing/Duration: unsure Severity: moderate Improving Factors: nothing Worsening Factors: nothing Associated Symptoms: loss of appetite, malaise, weakness Allergies/Adverse Reactions: Allergies Clarithromycin [From Biaxin] Allergy (Intermediate, Verified 02/24/19 23:14) Rash Protective Adhesive Powder Allergy (Intermediate, Verified 02/24/19 23:14) Rash Morphine Allergy (Unknown, Verified 11/24/19 06:55) Home Medications: Ambulatory Orders ALPRAZolam [Xanax] 0.25 mg PO TID PRN 02/14/14 Carisoprodol [Soma] 350 mg PO BID PRN 02/14/14 Estazolam [Prosom] 2 mg PO PRN PRN 02/14/14 HYDROcodone 7.5MG/APAP 325MG [[place] 7.5/325] 7.5 - 15 mg PO Q4-6H PRN 02/14/14 Losartan Potassium [Cozaar] 50 mg PO BID 02/14/14 Nifedipine [Procardia Xl] 90 mg PO DAILY 02/14/14 Ondansetron [Zofran Odt] 8 mg PO Q4-6H PRN 01/03/15 Vortioxetine HBr [Trintellix] 10 mg PO DAILY 01/03/15 Rivaroxaban [Xarelto] 10 mg PO QD #11 tab 01/05/15 Review of Systems - Review of Systems Constitutional: States: malaise, weakness - Generalized EENTM: States: other - The patient reports chronic right ear pain. Respiratory: States: short of breath - Mainly with activity Cardiology: States: no symptoms reported Gastrointestinal/Abdominal: States: abdominal pain, nausea Genitourinary: States: no symptoms reported Musculoskeletal: States: no symptoms reported Skin: States: no symptoms reported Neurological: States: see HPI Endocrine: States: no symptoms reported All other Systems: No Change from Baseline Past Medical History (General) - Patient Medical History Hx Seizures: No Hx Stroke: No Hx Asthma: No Hx of COPD: No Hx Cardiac Disorders: Yes Hx Congestive Heart Failure: No Hx Pacemaker: No Hx Hypertension: Yes Hx Diabetes: No Hx Cancer: No Hx Hepatitis C: No Hx MRSA: No Surgical History: other - Vaccination History Hx Tetanus, Diphtheria Vaccination: Yes Hx Influenza Vaccination: Yes Hx Pneumococcal Vaccination: No - Social History Hx Tobacco Use: Yes Hx Alcohol Use: No Hx Substance Use: No Hx Substance Use Treatment: No Hx Depression: Yes Hx Physical Abuse: No Hx Emotional Abuse: No - Female History Patient : No Family Medical History - Family History Mother Living Status: Age at (years of age): 77 Cause of : MRSA-sepsis Hx Family Cancer: Yes - breast Age of Onset (years of age): 48 Father Living Status: Age at (years of age): 84 Cause of : [place] Hx Family Hypertension: Yes Hx Cardiac Disease: Yes Physical Exam - Physical Exam General Appearance: Ill Appearing, Other - The patient is mildly drowsy. Initial presentation looks almost like opioid intoxication. She is oriented x4. Eye Exam: bilateral normal Ears, Nose, Throat: hearing grossly normal, normal pharynx, other - She does have right mastoid tenderness to palpation. Mucous membranes are mildly dry. Neck: non-tender, supple Respiratory: lungs clear, normal breath sounds, no respiratory distress, no accessory muscle use Cardiovascular/Chest: normal peripheral pulses, regular rate, rhythm, no edema Peripheral Pulses: radial,right: 2+, radial,left: 2+ Gastrointestinal/Abdominal: other - Operative sites appear clean but patient does have significant abdominal pain to palpation. Rectal Exam: deferred Extremity: normal range of motion, no pedal edema, no calf tenderness, normal capillary refill Neurologic: geometrician II-XII nml as tested, oriented x 3, other - Affect is flat. The patient is drowsy. Skin Exam: pallor Comments: Vital Signs - 24 hr 11/25/19 11/25/19 11/25/19 17:55 18:30 19:28 Temperature 98.2 F 98.3 F Pulse Rate 62 Pulse Rate [ 67 80 left brachial] Respiratory 14 18 14 Rate Blood Pressure 105/70 90/59 [left brachial] O2 Sat by Pulse 87 L 92 L 92 L Oximetry 11/25/19 19:53 Temperature Pulse Rate Pulse Rate [ 93 H left brachial] Respiratory 10 L Rate Blood Pressure 96/63 [left brachial] O2 Sat by Pulse 93 L Oximetry Progress - Progress Progress: 11/25/19 20:09 The patient is a 64-year-old female brought in by family secondary to altered mental status. The patient has had confusion over the last 24 to 48 hours, essentially since she got out of the hospital. The patient apparently accidentally pulled her PICC line yesterday. She was supposed to be receiving Invanz and did receive a dose here today. The patient has borderline hypotension here and has received a liter of IV fluids. The hypotension may be coming from sepsis from the abdominal abscesses however the patient also was apparently taking several blood pressure medications as well and pain medications which may be contributing. The patient has acute renal failure, likely related to the lower blood pressures. The IV fluid should help there. She did not receive IV contrast with a CT scan here today. White blood cell count is 16,000 which is apparently down from 2 days ago at 21,000 however that was up from 14,000 a couple of days prior. Platelets are elevated as well. The patient additionally has some hyponatremia which is apparently fairly new. This will need to be followed. A blood culture has been performed. Given what appears to be worsening of the abdominal abscesses on CT scan when compared to her previous CT scan, the patient is going to be transferred back to [facility] for additional surgical evaluation. Additionally on the work-up, it does appear the patient has a right mastoiditis, likely chronic, that will need longer-term addressing as well. Transferring for specialty care, higher level of care. Acceptance is appreciated. kellie lambert [phone] 11/25/19 20:36 - Results/Orders Results/Orders: Chest x-ray shows old calcified pulmonary nodules CT scan of the head without contrast shows right mastoiditis. CT scan of abdomen pelvis without contrast shows right lower lobe infiltrate versus atelectasis. Small volume of free air consistent with recent laparoscopic procedure. Wall thickening in the distal esophagus likely representing esophagitis. Distended gallbladder but no definite stones or wall thickening. Wall thickening of the descending and sigmoid colon. Multiple abscesses in the abdomen pelvis are present. Abscess also extends along the left pelvic sidewall to the retroperitoneal space. The largest abscess area measures 9 x 12 cm. Additional elliptical collection along the left pelvis measures 7.8 x 2.6 cm. Also abscess formation between the psoas muscle and the descending colon. Additional collection of abscesses in the central mesentery to the right of midline measuring 6 x 7-1/2 cm and extending vertically for an additional 7.7 cm. Additional areas of possible abscess exist however difficult to differentiate from bowel. Diffuse stranding edema. See report for full details. EKG shows normal sinus rhythm at 67 bpm. Poor R wave progression in anterior leads. No ST segment or T wave changes indicative of acute ischemia. Normal QT interval. No previous EKG for comparison. 11/25/19 18:08 Telemetry .CONTINUOUS 11/25/19 18:09 UA [URINALYSIS] Stat 11/25/19 18:10 URINE DRUG SCREEN, 7 ASSAY Stat 11/25/19 18:15 EKG STAT 11/25/19 18:59 BLOOD CULTURE Stat 11/26/19 09:00 Oxygen Daily Laboratory Results - last 24 hr 11/25/19 11/25/19 11/25/19 18:25 18:25 18:25 WBC 16.6 H RBC 3.00 L Hgb 9.7 L Hct 29.1 L MCV 96.9 MCH 32.2 H MCHC 33.2 RDW 14.5 Plt Count 544 H MPV 7.8 Absolute Neuts (auto) 14.40 H Absolute Lymphs (auto) 1.40 Absolute Monos (auto) 0.70 Absolute Eos (auto) 0.10 Absolute Basos (auto) 0.10 Neutrophils % 86.5 H Lymphocytes % 8.5 L Monocytes % 4.1 Eosinophils % 0.5 L Basophils % 0.4 PT 10.3 INR 1.04 PTT (SP) 35.0 H Sodium Potassium Chloride Carbon Dioxide Anion Gap BUN Creatinine BUN/Creatinine Ratio POC Glucose Random Glucose Serum Osmolality Lactic Acid Calcium Magnesium Total Bilirubin AST ALT Alkaline Phosphatase Creatine Kinase 28 CK-MB (CK-2) 3.2 CK-MB (CK-2) % Not Reportable Troponin I < 0.02 B-Natriuretic Peptide 576.0 H* Serum Total Protein Albumin Globulin Albumin/Globulin Ratio Amylase 23 L Lipase 11/25/19 11/25/19 11/25/19 18:25 18:25 18:25 WBC RBC Hgb Hct MCV MCH MCHC RDW Plt Count MPV Absolute Neuts (auto) Absolute Lymphs (auto) Absolute Monos (auto) Absolute Eos (auto) Absolute Basos (auto) Neutrophils % Lymphocytes % Monocytes % Eosinophils % Basophils % PT INR PTT (SP) Sodium 127 L Potassium 4.6 Chloride 95 L Carbon Dioxide 21 Anion Gap 15.6 BUN 37 H Creatinine 1.67 H BUN/Creatinine Ratio 22.2 H POC Glucose 102 Random Glucose 102 Serum Osmolality 264.1 L Lactic Acid 1.3 Calcium 8.3 L Magnesium 1.9 Total Bilirubin 0.5 AST 21 ALT 14 Alkaline Phosphatase 92 Creatine Kinase CK-MB (CK-2) CK-MB (CK-2) % Troponin I B-Natriuretic Peptide Serum Total Protein 6.8 Albumin 2.3 L Globulin 4.5 H Albumin/Globulin Ratio 0.5 L Amylase Lipase 18 L Departure - Departure Clinical Impression: Delirium, Abdominal abscess, Hyponatremia Hypotension Qualifiers: Hypotension type: unspecified hypotension type Qualified Code(s): I95.9 - Hypotension, unspecified Acute renal failure Qualifiers: Acute renal failure type: unspecified Qualified Code(s): N17.9 - Acute kidney failure, unspecified Mastoiditis Qualifiers: Laterality: right Qualified Code(s): H70.91 - Unspecified mastoiditis, right ear Disposition: Transfer to Hospital Condition: Poor Departure Forms: ED Discharge - Pt. Copy, Patient Portal Self Enrollment Referrals: Carlos Medina MD [Primary Care Provider] - 1-2 Weeks Home Medications: Ambulatory Orders ALPRAZolam [Xanax] 0.25 mg PO TID PRN 02/14/14 Carisoprodol [Soma] 350 mg PO BID PRN 02/14/14 Estazolam [Prosom] 2 mg PO PRN PRN 02/14/14 HYDROcodone 7.5MG/APAP 325MG [[place] 7.5/325] 7.5 - 15 mg PO Q4-6H PRN 02/14/14 Losartan Potassium [Cozaar] 50 mg PO BID 02/14/14 Nifedipine [Procardia Xl] 90 mg PO DAILY 02/14/14 Ondansetron [Zofran Odt] 8 mg PO Q4-6H PRN 01/03/15 Vortioxetine HBr [Trintellix] 10 mg PO DAILY 01/03/15 Rivaroxaban [Xarelto] 10 mg PO QD #11 tab 01/05/15 Transfer to Outside Facility - Transfer Information Decision to Transfer Date: 11/25/19 Decision to Transfer Time: 20:18 Reason for Transfer: required specialist not available Accepting Provider:: yadi Accepting Facility: [facility]
[2019-11-25] MEDS ORDERED: SODIUM CHLORIDE 0.9% 1000ML 500 ML IVS ONE (20:36)
[2019-11-25 20:46] VITALS: TEMP 97.6
[2019-11-25 21:35] VITALS: BP 124/65; O2SAT 94
== END 2019-11-25 21:51 | disposition short-term general hospital (02) ==
LOC: ER 17:49
DX: R41.0 Disorientation, unspecified (principal); K65.1 Peritoneal abscess; I95.9 Hypotension, unspecified; E87.1 Hypo-osmolality and hyponatremia; N17.9 Acute kidney failure, unspecified; H70.91 Unspecified mastoiditis, right ear; I10 Essential (primary) hypertension; F17.200 Nicotine dependence, unspecified, uncomplicated
CPT/HCPCS: 36415; 70450; 71045; 74176; 80053; 80307; 81001; 82150; 82550; 82553; 82948; 83605; 83690; 83735; 83880; 84484; 85025; 85610; 85730; 87040; 87086; 93005; 94640; J1335; J7030; J7050; J7620